=== PATIENT | female | born 1995 | race Caucasian/White ===

== ENCOUNTER → 2019-06-12 09:15 | Outpatient (BNVA) | payer OTHER, SELFPAY | PROVIDERS: Family Provider Family Medicine; PCP Family Medicine; Visit Provider Obstetrics & Gynecology | DX: N93.8 Other specified abnormal uterine and vaginal bleeding (principal); N91.2 Amenorrhea, unspecified | CPT/HCPCS: 83001; 84146; 84402; 84443; 84450 ==

== ENCOUNTER → 2019-08-25 10:44 | Outpatient (BNVA) | payer OTHER, SELFPAY | PROVIDERS: Family Provider Family Medicine; PCP Family Medicine; Visit Provider Obstetrics & Gynecology | DX: N97.9 Female infertility, unspecified (principal) | CPT/HCPCS: 84144 ==

== ENCOUNTER → 2019-10-02 15:20 | Outpatient (BNVA) | payer OTHER, SELFPAY | PROVIDERS: Family Provider Family Medicine; PCP Family Medicine; Visit Provider Obstetrics & Gynecology | DX: N91.2 Amenorrhea, unspecified (principal); N97.9 Female infertility, unspecified | CPT/HCPCS: 84144 ==

== ENCOUNTER → 2019-11-03 15:08 | Outpatient (BNVA) | payer OTHER, SELFPAY | PROVIDERS: Family Provider Family Medicine; PCP Family Medicine; Visit Provider Obstetrics & Gynecology | DX: N97.0 Female infertility associated with anovulation (principal) | CPT/HCPCS: 84144 ==

== ENCOUNTER → 2019-11-20 15:35 | Outpatient (BNVA) | payer OTHER, SELFPAY | PROVIDERS: Family Provider Family Medicine; PCP Family Medicine; Visit Provider Obstetrics & Gynecology | DX: Z32.01 Encounter for pregnancy test, result positive (principal) | CPT/HCPCS: 81025 ==

== ENCOUNTER 2019-11-28 09:11 | Emergency (ER) | payer OTHER, SELFPAY ==
--- NOTE | 2019-11-28 09:13 | US_ITS ---
WS: [id number] ULTRASOUND EARLY TECHNIQUE: Transabdominal sonography of the pelvis was performed. Followed by transvaginal sonography to better evaluate the uterus and ovaries. CLINICAL INFORMATION: preg/bleeding LMP: 10/09/2019 Beta hCG: Unknown. COMPARISON: None. FINDINGS: Cervix 3.6 cm UTERUS AND GESTATIONAL SAC Intrauterine gestations: Estimated gestational age: 6w1d Estimated delivery July 22, 2020 Yolk sac: 0.3 cm. [place] rump length (CRL): 0.5 cm. heart motion: 109 BPM. Subchorionic hemorrhage: None. OVARIES Right ovary: Right ovarian cyst measuring 3.5 x 3.1 x 3.5 cm Left ovary: Left ovary not well seen transvaginally due to positioning and patient discomfort. No adnexal masses. FREE FLUID None. US/US OB lmt with transvaginal IMPRESSION: 1. Single live intrauterine . pole and yolk sac visualized. 2. Estimated gestational age; 6w1d 3. Small amount of free fluid in the cul-de-sac. 4. Right ovarian cyst measuring 3.5 x 3.1 x 3.5 cm 5. Left ovary not well-visualized but appears normal where seen.
[2019-11-28 09:17] VITALS: BP 160/95; PULSE 85; RESP 18; TEMP 36.5; O2SAT 95
--- NOTE | 2019-11-28 09:32 | W.ED.PREGNAN ---
HPI - General: Chief complaint: Vaginal Bleeding Stated complaint: spotting/7 weeks Time Seen by Provider: 11/28/19 09:12 History of Present Illness: HPI Narrative: 24-year-old female patient presents to the emergency department with onset of, pink-tinged bleeding that started last night around 9 PM. She is approximately 7 weeks with last menstrual cycle 10/09/2019. She denies wearing a pad/tampon. Reports small amount of pink-tinged discharge this morning. She denies pelvic cramping. Reports abdominal cramping which is chronic, has not changed, reports consistent with early bowel?constipation symptoms. 1, para 0 AB 0 Complaint: vaginal bleeding Pain Consistency: intermittent Location: abdomen Severity: mild Severity scale (1-10): 2 Quality: Cramping (reports IBS-C symptoms) Relieving factors: none Exacerbating factors: none Vaginal discharge: other (pink on toilet paper) Vaginal bleeding: light Date of Last Menstrual Period: 10/09/19 Patient : Yes Number of Weeks : 7 Associated symptoms: Deny abdominal pain, dysuria, headache(s), nausea or vomiting Review of Systems General: Reports: 10 or more systems reviewed and unremarkable except in HPI and below Const: Denies: fever(s), chills or diaphoresis Eyes: Denies: blurry vision or eye redness ENMT: Denies: throat pain, dental pain or disequilibrium Card: Denies: chest pain, palpitations or irregular heart rhythm Resp: Denies: dyspnea, productive cough, non-productive cough or wheezing GI: Denies: abdominal pain, nausea or vomiting : Reports: vaginal bleeding; Denies: difficulty voiding, dysuria, urinary urgency, genital pruritis, vaginal odor or pelvic pain Musc: Denies: neck pain or back pain Skin/Breast: Denies: rash or pruritus Neuro: Denies: headache(s), weakness in extremities or behavioral changes William/Lymph: Denies: easy bruising PFSH ED PFSH: Medical History (Updated 11/28/19 @ 12:05 by TASNEEM Roe) Dysmenorrhea Surgical History History of wisdom tooth extraction Performed in [place], [place] Family History Grandfather Diabetes maternal Stroke paternal Grandmother Hypertension maternal Social History Smoking and tobacco status: never smoked Alcohol intake: former Year of sobriety/quit date alcohol: 2019 Female Reproductive History: Date of last menstrual period: 10/09/19 Physical Exam Const: COMMON NORMALS: no acute distress, patient oriented x3, healthy appearing and alert GENERAL APPEARANCE: cooperative, comfortable and well hydrated HENMT: COMMON NORMALS: normocephalic, Normal external nose present and moist oral mucous membranes HEAD & SCALP: normocephalic NOSE: Normal external nose present Eye: COMMON NORMALS: Equal, round and reactive pupils present and EOMs intact bilaterally GENERAL EYE: appearance normal, both eyes and all related structures PUPIL: Yes Equal, round and reactive pupils present Neck/C-Spine: COMMON NORMALS: full ROM and no lymphadenopathy GENERAL: Yes normal visual inspection and Yes trachea midline CERVICAL SPINE: Yes cervical ROM normal Lymph: LYMPHATIC: no lymphadenopathy noted Chest: COMMONS NORMALS: normal inspection of the chest Resp: COMMON NORMALS: normal respiratory effort and clear to auscultation bilaterally AUSCULTATION: clear to auscultation bilaterally Cardio: COMMON NORMALS: regular rhythm, S1 normal heart sound present and S2 normal heart sound present RHYTHM: regular rhythm HEART SOUNDS: S1 normal heart sound present and S2 normal heart sound present GI: COMMON NORMALS: Soft to palpation and non-tender INSPECTION: Yes normal to inspection AUSCULTATION: Yes Hypoactive bowel sounds present PALPATION: Yes Soft to palpation and No Tenderness to palpation present (GI) : COMMON NORMALS: Yes no CVA tenderness, Yes normal external appearance, Yes normal appearance of the vagina, Yes normal bimanual exam and Yes No adnexal tenderness BLADDER/KIDNEY EXAM: Yes no CVA tenderness EXTERNAL FEMALE EXAM: Yes normal appearance of the urethra SPECULUM EXAM - CERVIX: Yes Cervical os closed, Yes Cervical bleeding (Scant amount) and Yes Abnormal cervical discharge present clear BIMANUAL EXAM - VAGINA & UTERUS: Yes normal bimanual exam Back/Pelvis: COMMON NORMALS: no CVA tenderness and thoracic and lumbar spine normal to inspection Extremity: COMMON NORMALS: normal to inspection and capillary refill normal Neuro: COMMON NORMALS: patient oriented x3 and no focal motor deficits SENSORIUM/ORIENTATION: Yes alert Psych: COMMON NORMALS: mental status grossly normal, Normal thought process present and cooperative ACTIVITY/MOTOR BEHAVIOR: Yes appropriate eye contact THOUGHT PROCESS: Normal thought process present Skin: COMMON NORMALS: no rashes or lesions noted and turgor normal GENERAL SKIN EXAM: no rashes or lesions noted and turgor normal Procedures Perimortem Number of Weeks : 7 Course ED course: 24-year-old female patient presents to the emergency department with vaginal bleeding, last menstrual period 10/09/2019, 6 weeks 1 day intrauterine with cardiac activity transvaginal ultrasound. Pelvic exam with scant amount of bleeding from the cervix. Clear vaginal discharge, asymptomatic bacterial vaginosis noted on wet prep, elected not to treat at this time as she is asymptomatic, case was discussed with Dr. Sheridan. Patient has follow-up appointment in [address] Ramon. She reports stopped all medication with positive test and is only taking vitamin at this time. She was advised to return to the emergency department if she develops increased vaginal bleeding, fever, pelvic pain with vaginal bleeding or vomiting. Verbalized understanding. Questions were answered. Results of serology testing and ultrasound discussed with the patient and spouse. Consultations: Consultation #1: Dr Sheridan, discussed with Dr. Sheridan, clinical and serology findings with OB ultrasound report, single intrauterine noted with heart rate 109-112. Beta hCG within normal limits of gestational age. Wet prep discussed, asymptomatic bacterial vaginosis, will elect not to treat at this time as she is not symptomatic. Time: 12:00 Vital Signs: Vital signs: Vital Signs Temperature 97.7 F 11/28/19 09:17 Pulse Rate 79 11/28/19 12:00 Respiratory Rate 16 11/28/19 12:22 Blood Pressure 112/70 11/28/19 12:22 Pulse Oximetry 99 11/28/19 12:22 MDM - OB/Uterine Contractions Lab Data: Labs: Lab Results 11/28/19 11/28/19 11/28/19 Range/Units 09:50 10:18 10:18 WBC 5.6 (4.0-10.0) 10^3/ uL RBC 4.81 (4.1-5.3) 10^6/u L Hgb 15.2 (11.5-15.3) g/dL Hct 45.6 (37.0-47.0) % MCV 94.8 (81-99) fL MCH 31.6 (28.0-34.0) pg MCHC 33.3 (30.0-36.0) g/dL RDW 12.6 (12.1-15.1) % Plt Count 323 (130-400) 10^3/c mm MPV 8.4 (7.4-10.4) fL Neut % (Auto) 59.3 % Lymph % (Auto) 32.0 % [place] % (Auto) 7.4 % Eos % (Auto) 0.9 % Baso % (Auto) 0.2 % Neut # (Auto) 3.30 (1.8-7.7) 10^3/u L Lymph # (Auto) 1.8 (0.8-4.8) 10^3/u L [place] # (Auto) 0.4 (0.2-0.9) 10^3/u L Eos # (Auto) 0.1 (0.0-0.8) 10^3/u L Baso # (Auto) 0.0 (0.0-0.1) 10^3/u L Nucleated RBC % (a uto) 0 % Nucleated RBCs # 0.0 /100WBC Sodium (136-145) mmol/L Potassium (3.5-5.1) mmol/L Chloride (98-107) mmol/L Carbon Dioxide (22-29) mmol/L Anion Gap (5-19) BUN (6-20) mg/dL Creatinine (0.5-0.9) mg/dL GFR Calculation (90-130) mL/min Glucose (65-115) mg/dL Calculated Osmolal ity (285-295) mOsm/k g Calcium (8.5-10.5) mg/dL Total Bilirubin (0.15-1.2) mg/dL AST (0-32) U/L ALT (0-33) U/L Alkaline Phosphata se (35-105) IU/L Total Protein (6.6-8.7) g/dL Albumin (3.5-5.2) g/dL Globulin (1.3-4.6) g/dL Ser , Scott i-Qnt mIU/mL Urine Color Yellow (Yellow) Urine Appearance Clear (CLEAR) Urine pH 5 (5-7) Ur Specific Gravit y 1.015 (1.005-1.030) Urine Protein Neg (Negative) Urine Glucose (UA) Norm (Normal) Urine Ketones Negative (Negative) Urine Blood Neg (Negative) Urine Nitrate Negative (Negative) Urine Bilirubin Neg (Negative) Urine Urobilinogen Norm (Negative) mg/dL Ur Leukocyte [place] ase Negative (Negative) Blood Type A Positive Rho(D) Type Positive 11/28/19 11/28/19 Range/Units 10:18 10:18 WBC (4.0-10.0) 10^3/ uL RBC (4.1-5.3) 10^6/u L Hgb (11.5-15.3) g/dL Hct (37.0-47.0) % MCV (81-99) fL MCH (28.0-34.0) pg MCHC (30.0-36.0) g/dL RDW (12.1-15.1) % Plt Count (130-400) 10^3/c mm MPV (7.4-10.4) fL Neut % (Auto) % Lymph % (Auto) % [place] % (Auto) % Eos % (Auto) % Baso % (Auto) % Neut # (Auto) (1.8-7.7) 10^3/u L Lymph # (Auto) (0.8-4.8) 10^3/u L [place] # (Auto) (0.2-0.9) 10^3/u L Eos # (Auto) (0.0-0.8) 10^3/u L Baso # (Auto) (0.0-0.1) 10^3/u L Nucleated RBC % (a uto) % Nucleated RBCs # /100WBC Sodium 137 (136-145) mmol/L Potassium 4.0 (3.5-5.1) mmol/L Chloride 105 (98-107) mmol/L Carbon Dioxide 22 (22-29) mmol/L Anion Gap 14.0 (5-19) BUN 10 (6-20) mg/dL Creatinine 0.6 (0.5-0.9) mg/dL GFR Calculation 122.8 (90-130) mL/min Glucose 89 (65-115) mg/dL Calculated Osmolal ity 283 L (285-295) mOsm/k g Calcium 9.0 (8.5-10.5) mg/dL Total Bilirubin 0.4 (0.15-1.2) mg/dL AST 14 (0-32) U/L ALT 9 (0-33) U/L Alkaline Phosphata se 78 (35-105) IU/L Total Protein 6.9 (6.6-8.7) g/dL Albumin 3.8 (3.5-5.2) g/dL Globulin 3.1 (1.3-4.6) g/dL Ser , Scott i-Qnt 9290.00 mIU/mL Urine Color (Yellow) Urine Appearance (CLEAR) Urine pH (5-7) Ur Specific Gravit y (1.005-1.030) Urine Protein (Negative) Urine Glucose (UA) (Normal) Urine Ketones (Negative) Urine Blood (Negative) Urine Nitrate (Negative) Urine Bilirubin (Negative) Urine Urobilinogen (Negative) mg/dL Ur Leukocyte [place] ase (Negative) Blood Type Rho(D) Type Imaging Data^: US OB: Radiologist's impression: [place] [address] Ultrasound Report Signed Patient: Racheal Morton Unit #: [id number] : 1995 Age/Sex: 24 / F ADM Date: 11/28/19 Loc: ER Room/Bed: Attending Dr: Ordering Provider/Ordering MD: Mima Alvarez Date of Service: 11/28/19 Procedure(s): US OB lmt with transvaginal Accession Number(s): [id number] Report Number: [id number] WS: [id number] ULTRASOUND EARLY TECHNIQUE: Transabdominal sonography of the pelvis was performed. Followed by transvaginal sonography to better evaluate the uterus and ovaries. CLINICAL INFORMATION: preg/bleeding LMP: 10/09/2019 Beta hCG: Unknown. COMPARISON: None. FINDINGS: Cervix 3.6 cm UTERUS AND GESTATIONAL SAC Intrauterine gestations: Estimated gestational age: 6w1d Estimated delivery July 22, 2020 Yolk sac: 0.3 cm. [place] rump length (CRL): 0.5 cm. heart motion: 109 BPM. Subchorionic hemorrhage: None. OVARIES Right ovary: Right ovarian cyst measuring 3.5 x 3.1 x 3.5 cm Left ovary: Left ovary not well seen transvaginally due to positioning and patient discomfort. No adnexal masses. FREE FLUID None. US/US OB lmt with transvaginal IMPRESSION: 1. Single live intrauterine . pole and yolk sac visualized. 2. Estimated gestational age; 6w1d 3. Small amount of free fluid in the cul-de-sac. 4. Right ovarian cyst measuring 3.5 x 3.1 x 3.5 cm 5. Left ovary not well-visualized but appears normal where seen. Dictated By: Franko Smith MD Signed By: Franko Smith MD Discharge Plan Discharge Patient Disposition: Home Clinical Impression: Vaginal bleeding during , Threatened Condition: Stable Prescriptions: Continued prenat.vits,denilson,edk-tdar-wtgor Tablet 1 tab PO DAILY RF: 0 Discontinued medroxyprogesterone [Provera] 10 mg tablet 10 mg PO DAILY Qty: 10 RF: 0 metformin 500 mg tablet extended release 24 hr 1,500 mg PO DAILY Qty: 90 RF: 12 dexamethasone 2 mg tablet 2 mg PO DAILY 10 Days Qty: 10 RF: 0 clomiphene citrate 50 mg tablet 50 mg PO DAILY 5 Days Qty: 5 RF: 0 Xulane 150-35 mcg/24 hr patch weekly 1 patch TRANSDERMA .3 weeks Qty: 3 RF: 12 Discharge Orders: Discharge Order (Routine); Ordered 11/28/19 Ordered By: Mima Alvarez Referrals: Elmer Sauer MD [Primary Care Provider] - Discharge Diet: Usual diet Discharge Activity: Limit activity as instructed Patient Instructions: Threatened Miscarriage (ED) Activity Restrictions/Additional Instructions: Continue follow-up with Dr. Ramon next week, next Wednesday as scheduled Return to the emergency department if you develop heavy vaginal bleeding, saturating a pad, pelvic pain, fever or vomiting with pelvic pain Avoid sexual intercourse until follow-up next week No heavy lifting greater than 10 pounds until follow-up next week Stand Alone Forms: Work/School Release Discharge Date/Time: 11/28/19 12:24 Print Language: Israeli Coding Level of Care Code ED Change Management Coordinator for Chg Fwd Exam Comprehensive
[2019-11-28 10:00] LABS: Add Urine Microscopic? NO
[2019-11-28 10:16] LABS: Bilirubin Urine Neg (Negative); Blood Urine Neg (Negative); Glucose Urine UA Norm (Normal); Ketones Urine Negative (Negative); Leukocyte Esterase Urine Negative (Negative); Nitrate Urine Negative (Negative); Protein Urine Neg (Negative); Specific Gravity, Urine 1.015 (1.005-1.030); Urine Appearance Clear (CLEAR); Urine Color Yellow (Yellow); Urobilinogen Urine Norm (Negative); pH Urine 5 (5-7)
[2019-11-28 10:30] LABS: Basophils % 0.2 %; Eosinophils # 0.1 10^3/uL (0.0-0.8); Eosinophils % 0.9 %; Hematocrit 45.6 % (37.0-47.0); Hemoglobin 15.2 g/dL (11.5-15.3); Lymphocytes # 1.8 10^3/uL (0.8-4.8); Mean Corpuscular HGB Conc 33.3 g/dL (30.0-36.0); Mean Corpuscular Hemoglobin 31.6 pg (28.0-34.0); Mean Corpuscular Volume 94.8 fL (81-99); Mean Platelet Volume 8.4 fL (7.4-10.4); Monocytes # 0.4 10^3/uL (0.2-0.9); Monocytes % 7.4 %; Neutrophils % 59.3 %; Nucleated Red Blood Cells % 0 %; Platelet Count 323 10^3/cmm (130-400); Red Blood Count 4.81 10^6/uL (4.1-5.3); Red Cell Distribution Width 12.6 % (12.1-15.1); White Blood Count 5.6 10^3/uL (4.0-10.0)
[2019-11-28 10:34] VITALS: BP 108/68; PULSE 68; RESP 18; O2SAT 98
[2019-11-28 11:00] LABS: Alanine Aminotransferase 9 U/L (0-33); Albumin Level 3.8 g/dL (3.5-5.2); Alkaline Phosphatase 78 IU/L (35-105); Aspartate Amino Transferase 14 U/L (0-32); Blood Urea Nitrogen 10 mg/dL (6-20); Carbon Dioxide 22 mmol/L (22-29); Chloride 105 mmol/L (98-107); Creatinine Clr Calc Pharmacy 147.3787; Globulin 3.1 g/dL (1.3-4.6); Glomerular Filtration Rate 122.8 mL/min (90-130); Glucose 89 mg/dL (65-115); Osmolality Calculated 283 mOsm/kg (285-295); Sodium 137 mmol/L (136-145); Total Bilirubin 0.4 mg/dL (0.15-1.2); Total Protein 6.9 g/dL (6.6-8.7)
[2019-11-28 12:00] VITALS: BP 112/70; PULSE 79; O2SAT 97
[2019-11-28 12:22] VITALS: BP 112/70; RESP 16; O2SAT 99
== END 2019-11-28 12:24 | disposition home or self-care (01) ==
PROVIDERS: Emergency Provider Nurse Practitioner Family; PCP Family Medicine
DX: O20.0 Threatened abortion (principal); Z3A.01 Less than 8 weeks gestation of pregnancy
CPT/HCPCS: 12345; 76815; 76817; 80053; 81003; 84702; 85025; 86900; 87070; 87205; 87210; 99283

== ENCOUNTER → 2019-12-20 10:32 | Outpatient (BNVA) | payer OTHER, SELFPAY | PROVIDERS: PCP Family Medicine; Visit Provider Obstetrics & Gynecology | DX: O09.91 Supervision of high risk pregnancy, unspecified, first trimester (principal) | CPT/HCPCS: 80053; 80307; 84315; 85027; 86592; 86762; 86803; 86850; 86900; 87077; 87086; 87184; 87340; 87806 ==

== ENCOUNTER → 2020-01-12 09:42 | Outpatient (BNVA) | payer OTHER, SELFPAY | PROVIDERS: PCP Family Medicine; Visit Provider Obstetrics & Gynecology | DX: O99.891 Other specified diseases and conditions complicating pregnancy (principal); R82.71 Bacteriuria; Z3A.12 12 weeks gestation of pregnancy; B96.20 Unspecified Escherichia coli [E. coli] as the cause of diseases classified elsewhere; N39.0 Urinary tract infection, site not specified | CPT/HCPCS: 84315; 87086; 87491; 87591; 88175 ==

== ENCOUNTER → 2020-03-08 14:48 | Outpatient (BNVA) | payer OTHER, SELFPAY | PROVIDERS: PCP Family Medicine; Visit Provider Obstetrics & Gynecology | DX: Z36.89 Encounter for other specified antenatal screening (principal) | CPT/HCPCS: 76805 ==

== ENCOUNTER → 2020-05-03 15:36 | Outpatient (BNVA) | payer OTHER, SELFPAY | PROVIDERS: PCP Family Medicine; Visit Provider Obstetrics & Gynecology | DX: Z34.02 Encounter for supervision of normal first pregnancy, second trimester (principal) | CPT/HCPCS: 82950; 84315; 85025 ==

== ENCOUNTER → 2020-05-17 15:07 | Outpatient (BNVA) | payer OTHER, SELFPAY | PROVIDERS: PCP Family Medicine; Visit Provider Obstetrics & Gynecology | DX: Z34.03 Encounter for supervision of normal first pregnancy, third trimester (principal) | CPT/HCPCS: 81000 ==

== ENCOUNTER → 2020-05-31 10:44 | Outpatient (BNVA) | payer OTHER, SELFPAY | PROVIDERS: PCP Family Medicine; Visit Provider Obstetrics & Gynecology | DX: Z34.90 Encounter for supervision of normal pregnancy, unspecified, unspecified trimester (principal) | CPT/HCPCS: 81000 ==

== ENCOUNTER 2020-06-15 11:40 | Outpatient (CLI) | payer OTHER, SELFPAY ==
[2020-06-15 11:59] VITALS: TEMP 36.4
[2020-06-15 12:00] VITALS: BP 118/70; PULSE 90
[2020-06-15 12:05] VITALS: BMI 30.6
[2020-06-15 12:26] LABS: Urine Appearance Clear (CLEAR); Urine Color Colorless (Yellow)
[2020-06-15 12:27] LABS: Bilirubin Urine Neg (Negative); Blood Urine Neg (Negative); Glucose Urine UA Norm (Normal); Ketones Urine Negative (Negative); Leukocyte Esterase Urine Negative (Negative); Nitrate Urine Negative (Negative); Protein Urine Neg (Negative); Sulfosalicylic Acid Urine Negative (Negative); Urobilinogen Urine Norm (Negative); WBC Urine RARE /hpf (0-5); pH Urine 8 (5-7)
[2020-06-15 12:28] LABS: Add Urine Culture? No; Bacteria Urine TRACE /hpf; Mucus Urine TRACE /hpf; Squamous Epithelial Cell Urine 0-4 /hpf (0-5)
[2020-06-15] MEDS: betamethasone susp 6 mg/mL 5 mL 12 MG IM (13:53)
== END 2020-06-15 14:00 | disposition home or self-care (01) ==
LOC: OPOB 11:43 → OBGYN 11:47
PROVIDERS: Obstetrics & Gynecology; PCP Family Medicine; Visit Provider Obstetrics & Gynecology
DX: O26.899 Other specified pregnancy related conditions, unspecified trimester (principal); Z3A.00 Weeks of gestation of pregnancy not specified; R10.9 Unspecified abdominal pain
CPT/HCPCS: 59025; 81001; 96372; 99211; J0702

== ENCOUNTER 2020-06-16 13:36 | Outpatient (CLI) | payer OTHER, SELFPAY ==
[2020-06-16] MEDS: betamethasone susp 6 mg/mL 5 mL 12 MG IM (14:16)
== END 2020-06-16 14:19 | disposition home or self-care (01) ==
LOC: OPOB 13:46 → OBGYN 13:47
PROVIDERS: PCP Family Medicine; Visit Provider Obstetrics & Gynecology
DX: O26.899 Other specified pregnancy related conditions, unspecified trimester (principal); Z3A.00 Weeks of gestation of pregnancy not specified
CPT/HCPCS: 96372; 99211; J0702

== ENCOUNTER → 2020-06-27 16:06 | Outpatient (BNVA) | payer OTHER, SELFPAY | PROVIDERS: PCP Family Medicine; Visit Provider Obstetrics & Gynecology | DX: Z34.03 Encounter for supervision of normal first pregnancy, third trimester (principal) | CPT/HCPCS: 84315; 87081 ==

== ENCOUNTER → 2020-07-17 09:24 | Outpatient (BNVA) | payer OTHER, SELFPAY | PROVIDERS: PCP Family Medicine; Visit Provider Obstetrics & Gynecology | DX: Z34.03 Encounter for supervision of normal first pregnancy, third trimester (principal); Z20.822 Contact with and (suspected) exposure to COVID-19 | CPT/HCPCS: 87635 ==

== ENCOUNTER 2020-07-21 19:44 | Inpatient (IN) | payer OTHER, SELFPAY ==
[2020-07-21] VITALS (29 sets, daily range): BP systolic 89–127; BP diastolic 46–79; PULSE 65–100; RESP 15–16; TEMP 36.5; O2SAT 95–98; BMI 32.8
[2020-07-21 19:43] LABS: Nitrazine Paper, PH Positive
--- NOTE | 2020-07-21 21:53 | PC.NURSE ---
Lab called at this time due to labs not showing as received or pending at this time. Lab states that there was no order seen for the patient. RN stated that order was placed at 1943 and that labs were sent down and handed to a tech by [facility] at 2014. vascular technician states that she will look again for order and that she will start running the CBC that was ordered now.
[2020-07-21 21:57] LABS: Basophils % 0.4 %; Eosinophils % 0.5 %; Hematocrit 39.1 % (37.0-47.0); Lymphocytes # 2.2 10^3/uL (0.8-4.8); Lymphocytes % 25.8 %; Mean Corpuscular HGB Conc 33.2 g/dL (30.0-36.0); Mean Corpuscular Hemoglobin 30.4 pg (28.0-34.0); Mean Corpuscular Volume 91.4 fL (81-99); Monocytes # 0.6 10^3/uL (0.2-0.9); Monocytes % 7.6 %; Neutrophils # 5.46 10^3/uL (1.8-7.7); Neutrophils % 65.3 %; Nucleated Red Blood Cells % 0.2 %; Platelet Count 313 10^3/cmm (130-400); Red Blood Count 4.28 10^6/uL (4.1-5.3); Red Cell Distribution Width 14.3 % (12.1-15.1); White Blood Count 8.3 10^3/uL (4.0-10.0)
[2020-07-21] MEDS: oxytocin 30 UNIT/500 ML BAG IV (22:18)
[2020-07-21] MEDS: lactated ringers 1,000 ML 999 ML IV (22:19)
[2020-07-21] MEDS: dextrose 5%-lactated ringers 1,000 ML 125 ML IV (23:29)
--- NOTE | 2020-07-21 23:38 | P.ANESASSM_ITS ---
Pre-Anesthetic Assessment Pre-Anesthetic Assessment: Height/Weight: Height 1.6 m Weight 83.915 kg Temp Pulse Resp BP Pulse Ox 97.7 F 88 15 100/53 96 07/21/20 20:56 07/21/20 23:35 07/21/20 19:43 07/21/20 23:35 07/21/20 23:34 Preop Diagnosis: IUp Was Beta Atilio taken within 24 hours: N/A Was Clonidine taken within 24 hours: N/A Social: Social History: No alcohol and No tobacco Exam: Pre-Anes Outpt Exam: alert, oriented x 3, clear to auscultation bilaterally and regular rate & rhythm Airway: Submandibular: WNL Cervical ROM: WNL MP: 2 Dentition: Full History/ROS: No significant history except as noted Anesthetic Plan: ASA status: 2 Anesthesia: Regional (specify below) (Labor epidural) Risk of > 500 ml blood loss (7ml/kg in children): No Meds/Allergies Current Medications: Current Medications Generic Name Dose Route Start Last Admin Trade Name Freq PRN Reason Stop Dose Admin Dextrose/Lactated Ringer's 1,000 mls @ 125 m ls/hr 07/21/20 19:42 07/21/20 23:29 Dextrose 5%-Lact ated Ringers IV 125 mls/hr .Q8H PRN Administration LABOR INDUCTION Ropivacaine 200 mg in 100 mls @ 13 mls/hr 07/21/20 19:44 07/21/20 23:29 Naropin Premix EPIDURAL 13 mls/hr .Q7H42M PRN Administration ANESTHESIA Oxytocin 30 unit in 500 ml s @ 1 mls/hr 07/21/20 21:56 07/21/20 22:53 Pitocin IV 2 milliunit/min .Q24H PRN 2 mls/hr LABOR INDUCTION Titration Protocol 1 MILLIUNIT/MIN Lactated Ringer's 1,000 mls @ 999 m ls/hr 07/21/20 22:17 07/21/20 22:19 Lactated Ringers IV 999 mls/hr .Q1H1M PRN Administration See label comment s PFSH Anesthesia PFSH: Medical History Dysmenorrhea No pertinent past medical history neghx: htn,dm,thyroid,dvt/pe, herpes ----denies partner with herpes Surgical History History of wisdom tooth extraction Performed in [place], [place] Family History Grandfather Diabetes maternal Stroke paternal Grandmother Hypertension maternal Social History (Updated 07/19/20 @ 08:05 by Sandy Matamoros LPN) Smoking and tobacco status: never smoked Alcohol intake: never Female Reproductive History: Date of last menstrual period: 10/09/19 : 1 Data Anesthesia CBC & Chem 7: 07/21/20 19:55 Other Labs: Laboratory Results - last 48 hr 07/21/20 19:55 WBC 8.3 RBC 4.28 Hgb 13.0 Hct 39.1 MCV 91.4 MCH 30.4 MCHC 33.2 RDW 14.3 Plt Count 313 MPV 10.0 Neut % (Auto) 65.3 Lymph % (Auto) 25.8 [place] % (Auto) 7.6 Eos % (Auto) 0.5 Baso % (Auto) 0.4 Neut # (Auto) 5.46 Lymph # (Auto) 2.2 [place] # (Auto) 0.6 Eos # (Auto) 0.0 Baso # (Auto) 0.0 Nucleated RBC % (auto) 0.2 Nucleated RBCs # 0.0 Cardiac Studies: No Data to Display
--- NOTE | 2020-07-21 23:38 | ANES.PROC ---
Anesthesia Procedures Procedure/Date: 07/21/20 Epidural: Time Out Performed: Yes Consents Signed: Procedure Consent Consent: requested by attending/covering physician, from patient, risks and benefits reviewed and patient agrees to proceed Lumbar Level: L3-L4 Epidural position: sitting Epidural procedure: sterile prep of area, 1% lidocaine to numb the area, 18 g needle, neg for paresthesia, test dose given, 1.5% xylocaine 1:200k epi, placed PCEA, no systemic response, sterile dressing applied and 0.2% Ropiavacaine @ mls/hr (13) Additional Comments: CUCO at 5cm, cath at 10cm.
[2020-07-22] VITALS (92 sets, daily range): BP systolic 89–147; BP diastolic 50–84; PULSE 59–108; RESP 17–18; TEMP 36.4–37.5; O2SAT 90–100
[2020-07-22] MEDS: ondansetron 2 mg/ML SDV 2 mL 4 MG IVP ×2 (01:40→07:07)
[2020-07-22] MEDS: dextrose 5%-lactated ringers 1,000 ML 125 ML IV (06:18)
[2020-07-22] MEDS: lidocaine 2% INJ 20 mL INJECTION (08:53)
[2020-07-22] MEDS: fentaNYL 50 mcg/mL INJ 2mL IVP (09:02)
--- NOTE | 2020-07-22 09:51 | P.PCNOB_ITS ---
Delivery Note: Date of delivery: July 22, 2020 - PRE-DELIVERY DIAGNOSIS: 25-year-old 1 para 0 at 40 weeks and 0 days gestation GBS negative Spontaneous rupture of membranes-early labor Bilobed placenta POST-DELIVERY DIAGNOSIS: Vaginal delivery on 07/22/2020 PROCEDURE: Vaginal delivery on 07/22/2020 ANESTHESIA: Epidural anesthesia--local anesthesia with 2% lidocaine DELIVERING PHYSICIAN: Cristina Lan FACOG PRE-DELIVERY COURSE: Ms. Morton is 25-year-old 1 para 0 at 39 weeks and 6 days who prese nted to labor and delivery on 07/21/2020 with reports of spontaneous rupture of membranes at 6:30 PM with clear fluid. She was having occasional contractions- nothing consistent or that was causing her discomfort. On initial examination she was noted to be 3 cm, 75% -3 station, cephalic with the head well applied to the cervix. tracing was category 1 and she was having irregular contractions every 2 to 5 minutes. She was admitted to labor and delivery and observed for 2 to 3 hours and during this time made no further cervical change and contractions spaced out every 5 to 6 minutes. Labor was augmented with Pitocin titrated to a maximum of 10 mIU and with this she started to have regular contractions and was uncomfortable and epidural was placed. She made minimal cervical change until about 3 AM when she started to make more cervical change and was 5 cm 80% and -2 station. Around this time she started to make more rapid cervical change and and was 9 cm x 6 a.m. During this time of rapid cervical change she had stretches of minimal variability and variable decelerations with contractions which resolved with turning of Pitocin oxygen and position changes. Tracing return to category 1. She was noted to be fully dilated at 6:30 PM and was allowed to labor down as tracing was overall category 1 at this time. She was set up in lithotomy position at 7:45 PM ready to push. DELIVERY NOTE: She was set up in lithotomy position and was pushing effectively. She was noted to be +3 station and continued pushing well. She had already had some perineal tearing and decision was made to cut her right medial lateral episiotomy and verbal consent was obtained with patient and area was infiltrated with 2% lidocaine and the right mediolateral episiotomy was cut without any difficulty. The head delivered in JAMIL position, nuchal cord x1 was present-loose which was reduced without any difficulty. The shoulders and rest of the body followed with her next push. The baby's mouth and nose were suctioned and the baby was handed to the waiting extrusion die corrector. The placenta delivered spontaneously. Only 1 lobe of the placenta delivered with the cord. Manual removal of the second lobe of the placenta was done without any difficulty and no areas of retained placenta noted. The placenta was inspected well and was intact with membranes and was discarded. The fundus was noted to be firm and well contracted. The vagina and cervix were inspected and no cervical or sulcal lacerations were noted. The perineum was intact except for a second-degree right mediolateral episiotomy which was repaired with 3-0 Vicryl in a continuous interlocking fashion good hemostasis and reapproximation was obtained. Rectal exam was done and intact sphincter and mucosa were confirmed. Baby girl born at 8:50 AM on 07/22/2020 with 8/9, weighing 6 pounds 12 ounces, 3050 g, 19-3/4 inches long. Placenta was delivered spontaneously intact with membranes along with manual removal of the second lobe of the placenta. Cotyledons were intact , eccentrically inserted umbilical cord with 3 vessels noted. Estimated blood loss 400 mL--most blood loss was from episiotomy site.. Complications-none, both baby and mother were left to recover in a stable condition. This documentation was created by [employer] pump and still operator software (known for inherent pump and still operator error). Every effort was made to assure accuracy of pump and still operator. Any obvious errors or omissions should be clarified with the author of the document. Coding Level of Care Code Acute Automotive Paint Technician for Tommy Slade
[2020-07-22] MEDS: lanolin oint 7 gm 1 APPLIC TOPICAL (11:01)
[2020-07-22] MEDS: HYDROcodone-acetaminophen 5-325 mg Tablet PO ×2 (11:59→18:27)
[2020-07-22] MEDS: benzocaine-menthol 78 gm Canister 1 SPRAY TOPICAL (12:00)
--- NOTE | 2020-07-22 14:20 | PC.NURSE ---
pt worried that baby has not breast fed since 1030AM. Baby has been skin to skin. Assisted mom to wake baby and try to latch. Baby not interested in latching at this time. Mother upset. Nipple shield discussed and provided, baby still not interested in suck. Educated mom on normal feeding patter. Mom encouraged to keep baby skin to skin and we will try again in 30-45min or if baby shows interest sooner.
[2020-07-22] MEDS: ibuprofen 800 mg tablet PO ×2 (15:07→21:17)
[2020-07-22] MEDS: docusate sodium 100 mg Capsule PO (18:27)
[2020-07-22 21:29] LABS: Hematocrit 30.2 % (37.0-47.0); Hemoglobin 10.1 g/dL (11.5-15.3); Mean Corpuscular HGB Conc 33.4 g/dL (30.0-36.0); Mean Corpuscular Hemoglobin 30.4 pg (28.0-34.0); Mean Platelet Volume 9.6 fL (7.4-10.4); Platelet Count 221 10^3/cmm (130-400); Red Blood Count 3.32 10^6/uL (4.1-5.3); Red Cell Distribution Width 14.1 % (12.1-15.1); White Blood Count 12.6 10^3/uL (4.0-10.0)
[2020-07-23 01:00] VITALS: BP 90/57; PULSE 86; RESP 16; O2SAT 97
[2020-07-23 04:00] VITALS: BP 98/60; PULSE 69; RESP 16; O2SAT 98
--- NOTE | 2020-07-23 08:36 | P.DS_ITS ---
Discharge Providers SOFTWARE TEST AND VALIDATION ENGINEER Date of Admission: 07/21/20 19:44 Date of Discharge: 07/23/20 Attending Provider at Admission: Cristina Grace MD Attending Provider at Discharge: Cristina Grace MD Primary Care Provider: PRE-DELIVERY DIAGNOSIS: 25-year-old 1 para 0 at 40 weeks and 0 days gestation GBS negative Spontaneous rupture of membranes-early labor Bilobed placenta POST-DELIVERY DIAGNOSIS: Vaginal delivery on 07/22/2020 PROCEDURE: Vaginal delivery on 07/22/2020 ANESTHESIA: Epidural anesthesia--local anesthesia with 2% lidocaine DELIVERING PHYSICIAN: Cristina Lan FACOG PRE-DELIVERY COURSE: Ms. Morton is 25-year-old 1 para 0 at 39 weeks and 6 days who presented to labor and delivery on 07/21/2020 with reports of spontaneous rupture of membranes at 6:30 PM with clear fluid. She was having occasional contractions-nothing consistent or that was causing her discomfort. On initial examination she was noted to be 3 cm, 75% -3 station, cephalic with the head well applied to the cervix. tracing was category 1 and she was having irregular contractions every 2 to 5 minutes. She was admitted to labor and delivery and observed for 2 to 3 hours and during this time made no further cervical change and contractions spaced out every 5 to 6 minutes. Labor was augmented with Pitocin titrated to a maximum of 10 mIU and with this she started to have regular contractions and was uncomfortable and epidural was placed. She made minimal cervical change until about 3 AM when she started to make more cervical change and was 5 cm 80% and -2 station. Around this time she started to make more rapid cervical change and and was 9 cm x 6 a.m. During this time of rapid cervical change she had stretches of minimal variability and variable decelerations with contractions which resolved with turning of Pitocin oxygen and position changes. Tracing return to category 1. She was noted to be fully dilated at 6:30 PM and was allowed to labor down as tracing was overall category 1 at this time. She was set up in lithotomy position at 7:45 PM ready to push. DELIVERY NOTE: She was set up in lithotomy position and was pushing effectively. She was noted to be +3 station and continued pushing well. She had already had some perineal tearing and decision was made to cut her right medial lateral episiotomy and verbal consent was obtained with patient and area was infiltrated with 2% lidocaine and the right mediolateral episiotomy was cut without any difficulty. The head delivered in JAMIL position, nuchal cord x1 was present-loose which was reduced without any difficulty. The shoulders and rest of the body followed with her next push. The baby's mouth and nose were suctioned and the baby was handed to the waiting billet sawyer. The placenta delivered spontaneously. Only 1 lobe of the placenta delivered with the cord. Manual removal of the second lobe of the placenta was done without any difficulty and no areas of retained placenta noted. The placenta was inspected well and was intact with membranes and was discarded. The fundus was noted to be firm and well contracted. The vagina and cervix were inspected and no cervical or sulcal lacerations were noted. The perineum was intact except for a second-degree right mediolateral episiotomy which was repaired with 3-0 Vicryl in a continuous interlocking fashion good hemostasis and reapproximation was obtained. Rectal exam was done and intact sphincter and mucosa were confirmed. Baby girl born at 8:50 AM on 07/22/2020 with 8/9, weighing 6 pounds 12 ounces, 3050 g, 19-3/4 inches long. Placenta was delivered spontaneously intact with membranes along with manual removal of the second lobe of the placenta. Cotyledons were intact , eccentrically inserted umbilical cord with 3 vessels noted. Estimated blood loss 400 mL--most blood loss was from episiotomy site.. Complications-none, both baby and mother were left to recover in a stable condition. HOSPITAL COURSE: She underwent an uncomplicated vaginal delivery on 07/22/2020. She did well on day 0 and was ambulating well, tolerating regular diet, voiding freely, passing flatus. She was breast-feeding without difficulty and bonding well with her daughter. Pain was well-controlled with by mouth pain medication. She denied nausea, vomiting, fever, chills, shortness of breath, leg pain. She had moderate vaginal bleeding. On day # 1 she continued to do well with stable vital signs and stable hemoglobin at 10.1. She was discharged home on day 1 34 hours after delivery in a stable condition, as she desired early discharge. Warning signs for endometritis, mastitis, DVT/PE were reviewed with her. Post delivery activity restrictions were also reviewed with her at all her questions were answered to her satisfaction. Plans on using control pills for contraception which will be started at her 6-week visit EXAM AT DISCHARGE: Gen.: No acute distress Heart: S1-S2 heard, regular rate and rhythm Lungs: Clear to auscultation bilaterally Abdomen: Soft, fundus firm below umbilicus, Legs: No calf tenderness, trace bilateral pitting pedal edema. CONDITION AT DISCHARGE: Stable This documentation was created by [employer] planer off bearer software (known for inherent planer off bearer error). Every effort was made to assure accuracy of planer off bearer. Any obvious errors or omissions should be clarified with the author of the document. Reason for Visit Reason for Visit: POSSIBLE SROM Information Peripartum Data: Delivery Method: Vaginal Physical Exam Urinary Catheter Management^: Christian Latex: Cath Placed During This Visit: yes, but has since been removed by the nurse Reason for Continuing Indwelling Catheter: Decision to DC Catheter Urinary Catheter Date of Insertion: 07/22/20 Urinary Catheter Time of Insertion: 00:53 Date Urinary Catheter Removed: 07/22/20 Time Urinary Catheter Discontinued: 07:44 Discharge Data Data Completed and Pending: Labs from last 24 hours 07/22/20 21:15 WBC 12.6 H RBC 3.32 L Hgb 10.1 L Hct 30.2 L MCV 91.0 MCH 30.4 MCHC 33.4 RDW 14.1 Plt Count 221 MPV 9.6 Vitals: Last Vital Signs Temp 97.5 F L 07/22/20 13:06 Pulse 69 07/23/20 04:00 Resp 16 07/23/20 04:00 BP 98/60 07/23/20 04:00 Pulse Ox 98 07/23/20 04:00 Discharge Plan Discharge Patient Disposition: Home Condition: Stable Prescriptions: New docusate sodium 100 mg Capsule 100 mg PO BID PRN (Reason: constipation) Qty: 30 RF: 0 ibuprofen 800 mg tablet 800 mg PO Q8H Qty: 30 RF: 0 Continued omega-3 fatty acids 500 mg capsule 500 mg PO DAILY RF: 0 acetaminophen [Tylenol] 325 mg capsule 325 mg PO QID PRN (Reason: pain) RF: 0 prenat.vits,denilson,kmu-eqhp-kzzbb Tablet 1 tab PO DAILY RF: 0 Discharge Orders: Discharge Order (Routine); Ordered 07/23/20 Ordered By: Cristina Grace Referrals: Lili Verdin MD [Physician] - (6-week ) Discharge Diet: Usual diet Patient Instructions: Opioid Safety Activity Restrictions/Additional Instructions: Pelvic rest for 6 weeks, no heavy lifting for 6 weeks 6-week visit with Dr. Verdin Discharge Attestations SOFTWARE TEST AND VALIDATION ENGINEER Time Spent in Discharge Care*: greater than 30 min Coding Level of Care Code Acute Blanket Maker for [facility]
[2020-07-23] MEDS: ibuprofen 800 mg tablet PO (08:38)
[2020-07-23] MEDS: prenatal vitamin Capsule 1 CAP PO (08:39)
[2020-07-23] MEDS: docusate sodium 100 mg Capsule PO (08:39)
[2020-07-23 11:02] VITALS: BP 95/59; PULSE 67; RESP 14; TEMP 36.8
[2020-07-23 14:56] VITALS: BP 105/54; PULSE 76; RESP 15; TEMP 36.9
== END 2020-07-23 15:33 | disposition home or self-care (01) | DRG 807 ==
LOC: OBGYN 19:47
PROVIDERS: Admitting Provider Obstetrics & Gynecology; PCP Family Medicine; Visit Provider Obstetrics & Gynecology
DX: O43.193 Other malformation of placenta, third trimester (principal); Z37.0 Single live birth; O76 Abnormality in fetal heart rate and rhythm complicating labor and delivery; O69.2XX0 Labor and delivery complicated by other cord entanglement, with compression, not applicable or unspecified; O70.1 Second degree perineal laceration during delivery; Z3A.40 40 weeks gestation of pregnancy
CPT/HCPCS: 36415; 51702; 59025; 59409; 83986; 85025; 85027; 96374; 96375; 98960; 99211; J2405; J2795; J3010

== ENCOUNTER 2022-02-27 07:11 | Outpatient (CLI) | payer BC, SELFPAY ==
--- NOTE | 2022-02-27 07:30 | US_ITS ---
WS: [id number] LIMITED OBSTETRICAL ULTRASOUND HISTORY: 12 WEEKS GESTATION COMPARISON: None available. Presentation: Breech Cervix: Closed and normal length. Cervical length 4.0 cm. Placenta: Anterior, no previa or abruption. Grade: 0 HEART: FHR of 141 BPM. measurements: BPD = 2.9 cm = 15w2d HC = 11.3 cm = 15w3d AC = 9.4 cm = 15w4d FL = 1.6 cm = 14w5d AGA by ultrasound: 15w2d CHARBEL by ultrasound: 08/19/2022 US/US OB <= 14 weeks fetus [id number] IMPRESSION: 1. Single intrauterine gestation of 15 weeks 2 days with an EDC of 08/19/2022. 2. Normal cardiac activity.
== END 2022-02-27 07:12 | disposition home or self-care (01) ==
LOC: RAD 07:20
PROVIDERS: PCP Family Medicine; Visit Provider Family Medicine
DX: Z34.92 Encounter for supervision of normal pregnancy, unspecified, second trimester (principal); Z3A.15 15 weeks gestation of pregnancy
CPT/HCPCS: 76801

== ENCOUNTER 2022-08-23 00:10 | Inpatient (IN) | payer BC, SELFPAY ==
[2022-08-22] VITALS (7 sets, daily range): BP systolic 121–129; BP diastolic 69–87; PULSE 83–107; RESP 18; TEMP 35.9–36.2; BMI 31.2
[2022-08-22 17:58] LABS: Nitrazine Paper, PH Negative
[2022-08-22 17:59] LABS: Actim Prom Positive
[2022-08-22 19:16] LABS: Basophils % 0.3 %; Eosinophils % 0.4 %; Hematocrit 37.7 % (37.0-47.0); Hemoglobin 12.6 g/dL (11.5-15.3); Lymphocytes # 1.8 10^3/uL (0.8-4.8); Mean Corpuscular HGB Conc 33.4 g/dL (30.0-36.0); Mean Corpuscular Hemoglobin 30.2 pg (28.0-34.0); Mean Corpuscular Volume 90.4 fl (81-99); Mean Platelet Volume 9.8 fL (7.4-10.4); Monocytes # 0.5 10^3/uL (0.2-0.9); Monocytes % 7.1 %; Neutrophils # 4.98 10^3/uL (1.8-7.7); Neutrophils % 67.9 %; Nucleated Red Blood Cells % 0 %; Platelet Count 298 10^3/cmm (130-400); Red Blood Count 4.17 10^6/uL (4.1-5.3); Red Cell Distribution Width 13.4 % (12.1-15.1); White Blood Count 7.3 10^3/uL (4.0-10.0)
[2022-08-22] MEDS: dextrose 5%-lactated ringers 1,000 ML 125 ML IV (21:42)
[2022-08-22] MEDS: ondansetron 2 mg/ML SDV 2 mL 4 MG IVP (21:44)
[2022-08-22] MEDS: acetaminophen 325 mg Tablet 650 MG PO (23:30)
[2022-08-23] VITALS (57 sets, daily range): BP systolic 83–133; BP diastolic 49–75; PULSE 68–110; RESP 16–18; TEMP 36.1–37.1; O2SAT 93–99
[2022-08-23] MEDS: ondansetron 2 mg/ML SDV 2 mL 4 MG IVP (02:56)
[2022-08-23] MEDS: lactated ringers 1,000 ML 999 ML IV ×2 (03:02→08:30)
--- NOTE | 2022-08-23 03:58 | PM.OBGYHP ---
Providers/Chief Complaint Admitting Physician: Tucker Gonzalez MD Primary Care Provider: Elmer Sauer MD Chief Complaint: poss srom HPI SOFTWARE DEVELOPMENT COORDINATOR History of Present Illness Racheal Morton is a 27 year old G2, P1 female that presents for evaluation of rupture membranes. Patient was ROM plus positive. Patient states that she had been leaking fluid since 5:30 AM on August 22, 2022. Patient is having occasional contractions but nothing regular. Initial decision to place Cytotec was made but that she had made change from 2 to 4 cm. Patient has continued contraction regularly after that and has made some change. Forebag has been noted. There was a episode of bradycardia with heart rate down into the 90s but this is improved with intervention. Variability has been good but no recent acceleration. care has been unremarkable. labs were unremarkable. GBS was negative. Present Details : 2 Para: 1 care: good care Ultrasounds: normal 1st trimester US and normal mid trimester US Labs Blood type OB HPI: A (+) positive Rubella: Immune RPR: Negative GBS: Negative HBsAG: Negative Review of Systems General: Reports: 10 or more systems reviewed and unremarkable except in HPI and below Medications/Allergies Home Medications Medication Instructions Recorded Confirmed Last Taken Type prenat.vits,denilson,ttw-[id number]-pkkmo 1 tab PO DAILY 05/25/19 08/22/22 08/21/22 08:00 History norethindrone (contraceptive) 0.35 0.35 mg PO DAILY #28 tabs 09/02/20 09/02/20 Unknown Rx mg tablet ([facility]) Allergies Allergy/AdvReac Type Severity Reaction Status Date / Time No Known Allergies Allergy Verified 09/02/20 12:55 PFSH SOFTWARE DEVELOPMENT COORDINATOR PFSH: Medical History Dysmenorrhea No pertinent past medical history neghx: htn,dm,thyroid,dvt/pe, herpes ----denies partner with herpes Surgical History History of wisdom tooth extraction Performed in [place], [place] Family History Grandfather Diabetes maternal Stroke paternal Grandmother Hypertension maternal Social History (Updated 09/02/20 @ 08:20 by Sandy Matamoros LPN) Smoking and tobacco status: never smoked Alcohol intake: never Substance/Drug Use: never Other Female Reproductive History: Hx Age of Menarche: 10 History History History 2 Term 1 0 Miscarriages/Ectopic 0 Living Children 1 Vitals/I&O/Wt Last Vital Signs Temp 97.5 F L 08/23/22 02:39 Pulse 80 08/23/22 02:38 Resp 18 08/22/22 18:46 BP 125/69 08/22/22 21:33 Pulse Ox 98 08/23/22 02:38 O2 Del Method Room Air 08/22/22 18:42 Weight last 48 hrs Weight 82.554 kg Physical Exam Const: COMMON NORMALS: no acute distress and alert Resp: COMMON NORMALS: normal respiratory effort and clear to auscultation bilaterally Cardio: COMMON NORMALS: no JVD, regular rate and regular rhythm GI: OTHER: gravid Extremity: COMMON NORMALS: normal to inspection and no clubbing, cyanosis or edema Neuro: COMMON NORMALS: moves all extremities, no focal motor deficits and no sensory deficits noted Psych: COMMON NORMALS: mental status grossly normal, normal affect and speech normal Skin: COMMON NORMALS: no rashes or lesions noted Data 08/22/22 18:20 A&P Assessment and plan (1) Term : (2) Premature rupture of membranes (PROM) affecting second : Patient is currently making changes so labor has not been augmented. However, forebag was noted so it was ruptured. Continue with routine labor management at this time. However if continued bradycardia is noted and may need to consider more immediate delivery. It was discussed with the patient and consented for if needed emergently. Attestations Medical Necessity Statement*: Anticipate greater than 2 midnight stay. Coding Level of Care Code Acute Code for Chg Fwd Diagnoses Term Z34.90 Premature rupture of membranes (PROM) affecting second O42.90
[2022-08-23] MEDS: dextrose 5%-lactated ringers 1,000 ML 125 ML IV (04:07)
[2022-08-23] MEDS: acetaminophen 325 mg Tablet 650 MG PO (05:44)
[2022-08-23] MEDS: fentaNYL 50 mcg/mL INJ 2mL IVP ×2 (05:59→07:28)
--- NOTE | 2022-08-23 08:46 | P.ANESASSM_ITS ---
Pre-Anesthetic Assessment Height/Weight: Height 1.63 m Weight 82.554 kg Temp Pulse Resp BP Pulse Ox O2 Del Method 97.0 F L 93 18 107/58 98 Room Air 08/23/22 07:35 08/23/22 08:43 08/23/22 07:28 08/23/22 08:41 08/23/22 08:43 08/23/22 06:47 Epidural Familial anesthetic complications: States previous epidural gave her back pain - wishes to proceed with current epidural Social No alcohol and No tobacco Exam alert, oriented x 3, clear to auscultation bilaterally and regular rate & rhythm Airway Mallampati: Class III Dentition: chipped Anesthetic Plan ASA status: 2 Anesthesia: Regional (specify below) Risk of > 500 ml blood loss (7ml/kg in children): Yes, adequate IV access and fluids planned Medications/Allergies Home Medications Medication Instructions Recorded Confirmed Last Taken Type prenat.vits,denilson,syn-qifk-dqrnk 1 tab PO DAILY 05/25/19 08/22/22 08/21/22 08:00 History norethindrone (contraceptive) 0.35 0.35 mg PO DAILY #28 tabs 09/02/20 09/02/20 Unknown Rx mg tablet ([facility]) Allergies Allergy/AdvReac Type Severity Reaction Status Date / Time No Known Allergies Allergy Verified 09/02/20 12:55 Current Medications Generic Name Dose Route Start Last Admin Trade Name Freq PRN Reason Stop Dose Admin Acetaminophen 650 mg 08/22/22 18:28 08/23/22 05:44 Acetaminophen 325 Mg Tablet PO 650 mg Q6H PRN Administration Mild pain or temp > 100.4 Fentanyl 25 - 100 mcg 08/23/22 05:54 08/23/22 07:28 Fentanyl 50 Mcg/Ml Inj 2ml IVP 25 mcg Q1H PRN Administration SEVERE PAIN Dextrose/Lactated Ringer's 1,000 mls @ 125 mls/hr 08/22/22 18:30 08/23/22 04:07 Dextrose 5%-Lactated Ringers IV 125 mls/hr .Q8H SOHAIL Administration Lactated Ringer's 1,000 mls @ 999 mls/hr 08/22/22 18:28 08/23/22 03:02 Lactated Ringers IV 999 mls/hr .Q1H1M PRN Administration Per L&D Rescitation Protocol Ondansetron HCl 4 mg 08/22/22 18:28 08/23/22 02:56 Ondansetron 2 Mg/Ml Sdv 2 Ml IVP 4 mg Q4H PRN Administration NAUSEA AND VOMITING PFSH Anesthesia Medical History Dysmenorrhea No pertinent past medical history neghx: htn,dm,thyroid,dvt/pe, herpes ----denies partner with herpes Surgical History History of wisdom tooth extraction Performed in [place], [place] Family History Grandfather Diabetes maternal Stroke paternal Grandmother Hypertension maternal Social History (Updated 09/02/20 @ 08:20 by Sandy Matamoros LPN) Smoking and tobacco status: never smoked Alcohol intake: never Substance/Drug Use: never Female Reproductive History : 2 Data Anesthesia 08/22/22 18:20 Short CBC 08/22/22 Range/Units 18:20 WBC 7.3 (4.0-10.0) 10^3/uL Hgb 12.6 (11.5-15.3) g/dL Hct 37.7 (37.0-47.0) % MCV 90.4 (81-99) fl Plt Count 298 (130-400) 10^3/cmm Neut % (Auto) 67.9 % Neut # (Auto) 4.98 (1.8-7.7) 10^3/uL Cardiac Studies: No Data to Display
--- NOTE | 2022-08-23 08:47 | ANES.PROC ---
Anesthesia Procedures Procedure/Date: 08/23/22 Epidural: Time Out Performed: Yes Consents Signed: Procedure Consent Consent: requested by attending/covering physician, from patient, from other, risks and benefits reviewed and patient agrees to proceed Lumbar Level: L3-L4 Epidural position: sitting Epidural procedure: sterile prep of area, 1% lidocaine to numb the area, 18 g needle, negative for paresthesia passed, neg for paresthesia, test dose given, 1.5% xylocaine 1:200k epi (5), 0.2% Ropivacaine bolus ml (5), placed PCEA, no systemic response, sterile dressing applied, L.U.D. no apparent complications and 0.2% Ropiavacaine @ mls/hr (10) Additional Comments: CUCO at 5 cm, threaded to 11 cm. Pain decreased from 10 to 1
[2022-08-23] MEDS: lidocaine 2% INJ 20 mL INJECTION (10:15)
--- NOTE | 2022-08-23 10:42 | PM.DELIVERY ---
Delivery Note: Date of delivery: August 23, 2022 Pre-delivery diagnoses: Term Post-delivery diagnoses: Same, viable infant female Procedure: Spontaneous vaginal delivery Op report anesthesia: Epidural Delivering Physician: Kelton Gonzalez MD Estimated blood loss (mL): 300 Pre-Delivery Course: This is a 27-year-old G2, P2 that presented yesterday with rupture membranes. Patient initially had slow progression to 5 cm. Forebag was noted and it was ruptured. Patient then progressed to completion as expected. Patient received epidural at 8 cm. Delivery: Patient was placed in normal lithotomy position and was coached to start pushing with contractions. Patient with contractions for approximately 30 minutes. Patient then delivered a viable infant female without issues. There was nuchal cord x1 that was delivered through. Placenta was then delivered without issue. The perineum did show a small second-degree perineal tear and a left labial tear. The perineal tear was repaired with 2-0 Vicryl and the labial tear was repaired with with 3-0 chromic. Patient had significant labial swelling. Post-Delivery Status: Stable History History History 2 Term 2 0 Miscarriages/Ectopic 0 Living Children 2 A&P Assessment and plan (1) Vaginal delivery: Proceed with routine care. Coding Level of Care Code Acute Code for Chg Fwd Diagnoses Vaginal delivery O80
[2022-08-23] MEDS: benzocaine-menthol 78 gm Canister 1 SPRAY TOPICAL (13:31)
[2022-08-23] MEDS: ibuprofen 800 mg tablet PO (15:04)
[2022-08-23] MEDS: docusate sodium 100 mg Capsule PO (18:34)
--- NOTE | 2022-08-23 18:39 | PC.NURSE ---
Entered room mom was resting in bed on her right side. Baby was not in the crib. The father didnot have baby either. Baby was found completely under moms shirt with her face in moms breast. Educated mother on safe sleeping, and mother verbalized understanding.
[2022-08-24] MEDS: ibuprofen 800 mg tablet PO ×2 (00:02→09:14)
[2022-08-24 00:32] LABS: Hematocrit 27.8 % (37.0-47.0); Mean Corpuscular HGB Conc 32.4 g/dL (30.0-36.0); Mean Corpuscular Hemoglobin 29.7 pg (28.0-34.0); Mean Corpuscular Volume 91.7 fl (81-99); Mean Platelet Volume 9.8 fL (7.4-10.4); Platelet Count 213 10^3/cmm (130-400); Red Blood Count 3.03 10^6/uL (4.1-5.3); Red Cell Distribution Width 13.5 % (12.1-15.1); White Blood Count 11.4 10^3/uL (4.0-10.0)
[2022-08-24 04:35] VITALS: BP 103/61; PULSE 71; TEMP 36.8; O2SAT 98
--- NOTE | 2022-08-24 07:26 | PM.OBGYDC ---
Discharge Providers ETL INFORMATICA DEVELOPER Date of Admission: 08/23/22 00:10 Date of Discharge: 08/24/22 Attending Provider at Admission: Tucker Gonzalez MD Attending Provider at Discharge: Tucker Gonzalez MD Primary Care Provider: Elmer Sauer MD Diagnoses at Discharge Discharge Diagnosis (1) Vaginal delivery: Status: Acute Reason for Visit Reason for Visit: poss srom Brief History: This is a 27-year-old that presented with rupture of membranes at 40 weeks 4 days Hospital Course Hospital Course The patient was found to have rupture membranes after arrival. The patient initially did not progress as expected and forebag was noted. Rupture of the forebag was performed and consistent contractions and cervical change did occur. Patient delivered a viable infant female via vaginal delivery without difficulty. Patient had no significant complications during delivery. care was unremarkable. Patient is breast-feeding without issues. Patient has been ambulating and urinating without difficulty Information Peripartum Data: Delivery Method: Vaginal Laceration description: Perineal - 2nd Degree Episiotomy description: None complications: none Physical Exam Const: COMMON NORMALS: no acute distress and alert Neck/C-Spine: COMMON NORMALS: no JVD Resp: COMMON NORMALS: normal respiratory effort and clear to auscultation bilaterally AUSCULTATION: clear to auscultation bilaterally Cardio: COMMON NORMALS: no JVD, regular rate and regular rhythm RATE: regular rate RHYTHM: regular rhythm GI: COMMON NORMALS: Soft to palpation PALPATION: Yes Soft to palpation OTHER: Uterus firm and below umbilicus Extremity: COMMON NORMALS: normal to inspection and no clubbing, cyanosis or edema Neuro: COMMON NORMALS: moves all extremities, no focal motor deficits and no sensory deficits noted SENSORIUM/ORIENTATION: Yes alert Psych: COMMON NORMALS: mental status grossly normal, normal affect and speech normal SPEECH: Yes normal speech Skin: COMMON NORMALS: no rashes or lesions noted GENERAL SKIN EXAM: no rashes or lesions noted History History History 2 Term 2 0 Miscarriages/Ectopic 0 Living Children 2 Discharge Data Studies Completed and Pending Laboratory Results WBC 11.4 10^3/uL (4.0-10.0) H 08/24/22 00:18 RBC 3.03 10^6/uL (4.1-5.3) L 08/24/22 00:18 Hgb 9.0 g/dL (11.5-15.3) L 08/24/22 00:18 Hct 27.8 % (37.0-47.0) L 08/24/22 00:18 MCV 91.7 fl (81-99) 08/24/22 00:18 MCH 29.7 pg (28.0-34.0) 08/24/22 00:18 MCHC 32.4 g/dL (30.0-36.0) 08/24/22 00:18 RDW 13.5 % (12.1-15.1) 08/24/22 00:18 Plt Count 213 10^3/cmm (130-400) 08/24/22 00:18 MPV 9.8 fL (7.4-10.4) 08/24/22 00:18 Neut % (Auto) 67.9 % 08/22/22 18:20 Lymph % (Auto) 24.0 % 08/22/22 18:20 [place] % (Auto) 7.1 % 08/22/22 18:20 Eos % (Auto) 0.4 % 08/22/22 18:20 Baso % (Auto) 0.3 % 08/22/22 18:20 Neut # (Auto) 4.98 10^3/uL (1.8-7.7) 08/22/22 18:20 Lymph # (Auto) 1.8 10^3/uL (0.8-4.8) 08/22/22 18:20 [place] # (Auto) 0.5 10^3/uL (0.2-0.9) 08/22/22 18:20 Eos # (Auto) 0.0 10^3/uL (0.0-0.8) 08/22/22 18:20 Baso # (Auto) 0.0 10^3/uL (0.0-0.1) 08/22/22 18:20 Nucleated RBC % (auto) 0 % 08/22/22 18:20 Nucleated RBCs # 0.0 /100WBC 08/22/22 18:20 Insulin-like GF I Positive 08/22/22 17:40 Vitals Last Vital Signs Temp 98.2 F 08/24/22 04:35 Pulse 71 08/24/22 04:35 Resp 17 08/23/22 22:00 BP 103/61 08/24/22 04:35 Pulse Ox 98 08/24/22 04:35 O2 Del Method Room Air 08/24/22 04:35 Discharge Plan Discharge Patient Disposition: Home Condition: Stable Prescriptions: Continued prenat.vits,denilson,[id number] Tablet 1 tab PO DAILY Discontinued norethindrone (contraceptive) [Ortho [facility]] 0.35 mg tablet 0.35 mg PO DAILY Qty: 28 12RF Referrals: Tucker Gonzalez MD [Physician] - 6 Weeks Discharge Diet: Usual diet Discharge Activity: Limit activity as instructed Patient Instructions: Opioid Safety Discharge Attestations ETL INFORMATICA DEVELOPER Time Spent in Discharge Care*: less than 30 min Coding Level of Care Code Acute Code for Chg Fwd Diagnoses Vaginal delivery O80
[2022-08-24] MEDS: docusate sodium 100 mg Capsule PO (09:14)
[2022-08-24] MEDS: prenatal vitamin Capsule 1 CAP PO (09:14)
[2022-08-24 09:30] VITALS: BP 108/72; PULSE 76; RESP 15; TEMP 37.2; O2SAT 98
--- NOTE | 2022-08-24 11:41 | ANE.PACU2 ---
Inpatient post-anesthesia follow up: Airway intact: Yes Vital signs: Temperature 98.2 F Pulse Rate 71 Respiratory Rate 17 Blood Pressure 103/61 Pulse Oximetry 98 Oxygen Delivery Me thod Room Air Oxygen Flow Rate Fraction of Inspir ed Oxygen Hydration adequate: Yes Nausea and vomiting: No Pain level: 2 Mental status: Baseline
[2022-08-24 12:45] VITALS: BP 109/73; PULSE 91; RESP 15; TEMP 37.4; O2SAT 98
== END 2022-08-24 13:00 | disposition home or self-care (01) | DRG 807 ==
LOC: OPOB 00:11 → OBGYN 00:11
PROVIDERS: Admitting Provider Family Medicine; PCP Family Medicine; Visit Provider Family Medicine
DX: O48.0 Post-term pregnancy (principal); Z37.0 Single live birth; O69.81X0 Labor and delivery complicated by cord around neck, without compression, not applicable or unspecified; O70.1 Second degree perineal laceration during delivery; Z3A.40 40 weeks gestation of pregnancy; O70.0 First degree perineal laceration during delivery; O76 Abnormality in fetal heart rate and rhythm complicating labor and delivery
CPT/HCPCS: 36415; 59025; 59409; 83986; 84112; 85025; 85027; 96374; 96376; 99211; J2405; J2795; J3010; J7040; J7120; J7121

== ENCOUNTER 2024-04-26 11:59 | Emergency (ER) | payer OTHER, SELFPAY ==
[2024-04-26 12:08] VITALS: BP 134/93; PULSE 80; RESP 18; TEMP 36.4; O2SAT 99; BMI 32.5
--- NOTE | 2024-04-26 12:22 | ECG_ITS ---
[employer] [facility] [facility] Date: 2024-04-26 Pat Name: Racheal Morton Department: Room: Gender: Female Fusing Machine Feeder: : 1995 Requested By: Abbe Ervin Order Number: [id number] Beverly MD: Wes Garcia M.D. Measurements Intervals Harvey Rate: 77 P: 50 MD: 143 QRS: 62 QRSD: 82 T: 55 QT: 349 QTc: 397 Interpretive Statements SINUS RHYTHM WITH SINUS ARRHYTHMIA No previous ECG available for comparison Electronically Signed On 04-26-2024 22:03:05 CDT by Wes Garcia M.D. [id number]
--- NOTE | 2024-04-26 12:22 | XRR_ITS ---
PROCEDURE INFORMATION: Exam: XR Chest Exam date and time: 04/26/2024 12:23 PM Age: 29 years old Clinical indication: Pain; Angina pectoris; Additional info: Cp TECHNIQUE: Imaging protocol: Radiologic exam of the chest. Views: 1 view. COMPARISON: No relevant prior studies available. FINDINGS: Lungs: Clear. No consolidation. There is a 4 mm nodular density projecting over the right upper lung zone superimposed on the clavicle and right 2nd rib. This appears fairly dense and likely represents a calcified granuloma. Pleural spaces: No significant pleural effusion. No pneumothorax. Heart/Mediastinum: Within normal limits. No cardiomegaly. Bones/joints: Intact. Other findings: None. XR/XR chest 1V portable [id number] IMPRESSION: 1. No acute findings. 2. Probable 4 mm calcified granuloma in the right upper lobe.
--- NOTE | 2024-04-26 12:22 | W.ED.CHESTPA ---
HPI - Chest Pain General: Chief Complaint: Chest Pain Stated Complaint: chest tight Time Seen by Provider: 04/26/24 12:12 Source: patient and family Mode of arrival: ambulatory Limitations: no limitations History of Present Illness: This patient comes in because of she is having chest pain episodes that have occurred over the past week or thereabouts. She states that heaviness feeling occurs in the center of her chest. She states they have lasted anywhere from 30 to 60 minutes as best she can estimate. She states the pain does not radiate or move. She states is not associated with any emotional changes or other symptoms that she is aware. She has no associated nausea or diaphoresis but does get a sensation of shortness of breath. She states that does not go to what she previously experienced as a teenager as a full-blown panic attack. She states it never wakes her from sleep. She is not terribly physically active other than activities of daily living so she cannot describe whether it is worsened with active exertional activity. Certainly is not worse or brought on by her activities of daily living. She is not a tobacco user. She has not been recently ill. She had perhaps a cough equivalent diagnosis of reactive airway disease as a child but she again is noted she has not been recently ill. No history of heartburn or acid reflux. No recent trauma. No history of thromboembolic disease but she is on oral contraceptives. No family history of thromboembolic disease. No hip family history of premature cardiovascular disease or sudden . She denies any sensation of rapid heart rate when these episodes occur. Related Data Home Medications ?Medication ?Instructions ?Recorded ?Confirmed prenat.vits,denilson,[id number] 1 tab PO DAILY 05/25/19 04/26/24 buspirone 5 mg tablet 5 mg PO BID 04/26/24 04/26/24 norelgestromin 150 mcg-e.estradiol 1 patch transdermal Q7D 04/26/24 04/26/24 35 mcg/24 hr weekly transderm patch (Xulane) Allergies Allergy/AdvReac Type Severity Reaction Status Date / Time No Known Allergies Allergy Verified 09/02/20 12:55 [facility] PFSH: Medical History Dysmenorrhea No pertinent past medical history neghx: htn,dm,thyroid,dvt/pe, herpes ----denies partner with herpes Surgical History History of wisdom tooth extraction Performed in [place], [place] Family History Grandfather Diabetes maternal Stroke paternal Grandmother Hypertension maternal Social History (Updated 09/02/20 @ 08:20 by Sandy Matamoros LPN) Smoking and tobacco/nicotine status: never used tobacco/nicotine Alcohol intake: never Substance/Drug Use: never Course Reevaluation(s): Reevaluation #1: Patient remained stable. All her results were reviewed with her and her spouse their limitations and implications. No evidence at this time of an ongoing emergency medical condition including ACS, risk of PE or thromboembolic condition, other serious medical condition at this time. She did relate that she was given BuSpar last week and she had taken a couple doses when she had a couple of previous episodes but today she took the BuSpar and it did not seem to be as effective. I did discuss with her that BuSpar is not commonly a as needed medication despite what she has been told. Certainly suggest this may be anxiety related certainly does not at this time suggest an ongoing emergency medical condition. All questions were answered she is stable to be discharged we also discussed return precautions. Time: 14:50 Vital Signs: Vital signs: Vital Signs Temperature 97.6 F 04/26/24 12:08 Pulse Rate 76 04/26/24 12:41 Respiratory Rate 18 04/26/24 12:08 Blood Pressure 122/69 04/26/24 12:41 Pulse Oximetry 96 04/26/24 12:41 Oxygen Delivery Me thod Room Air 04/26/24 12:41 MDM - Chest Pain Medical Decision Making Patient presented as noted in HPI with multiple episodes of chest pressure intermittent over the past week with subjective feeling of shortness of breath. Will initiate a workup to ensure no evidence of arrhythmia, pneumonia, ACS, thromboembolic event etc. patient's initial evaluation included imaging of the chest x-ray, serial troponins, serial EKGs, other supportive lab test including a D-dimer. Her D-dimer is below the cutoff making thromboembolic disease unlikely. Serial troponins were also reassuring and negative for delta. Serial EKGs revealed no dynamic changes chest x-ray was unremarkable other than a solitary granuloma. No evidence of serious pathology at this time. Additional discussion was had regarding her anxiety as a potential component and also apparently her directed use of BuSpar as a as needed medication and and it is not usually effective in that manner. I advised continue the BuSpar, follow-up with her primary care clinic regarding discussion of medication use and perhaps the change in her medication dosing Lab Data I reviewed the patient's lab results. 04/26/24 12:14 04/26/24 12:14 Radiology Impressions Chest X-Ray 04/26/24 12:22 IMPRESSION: 1. No acute findings. 2. Probable 4 mm calcified granuloma in the right upper lobe. Laboratory Results WBC 6.59 10^3/uL (3.29-11.43) 04/26/24 12:14 RBC 5.00 10^6/uL (3.85-5.65) 04/26/24 12:14 Hgb 15.40 g/dL (11.27-16.99) 04/26/24 12:14 Hct 46.4 % (36-47) 04/26/24 12:14 MCV 92.8 fl (85-98) 04/26/24 12:14 MCH 30.8 pg (27-33) 04/26/24 12:14 MCHC 33.2 g/dL (30-55) 04/26/24 12:14 RDW 13.0 % (12.1-15.1) 04/26/24 12:14 Plt Count 343 10^3/cmm (157-399) 04/26/24 12:14 MPV 8.5 fL (7.4-10.4) 04/26/24 12:14 Neut % (Auto) 55.3 % 04/26/24 12:14 Lymph % (Auto) 37.5 % 04/26/24 12:14 [place] % (Auto) 5.8 % 04/26/24 12:14 Eos % (Auto) 0.9 % 04/26/24 12:14 Baso % (Auto) 0.3 % 04/26/24 12:14 Neut # (Auto) 3.65 10^3/uL (1.8-7.7) 04/26/24 12:14 Lymph # (Auto) 2.5 10^3/uL (0.8-4.8) 04/26/24 12:14 [place] # (Auto) 0.4 10^3/uL (0.2-0.9) 04/26/24 12:14 Eos # (Auto) 0.1 10^3/uL (0.0-0.8) 04/26/24 12:14 Baso # (Auto) 0.0 10^3/uL (0.0-0.1) 04/26/24 12:14 Nucleated RBC % (auto) 0 % 04/26/24 12:14 Nucleated RBCs # 0.0 /100WBC 04/26/24 12:14 D-Dimer 0.55 ug/mLFEU (0-0.59) 04/26/24 12:14 Sodium 139 mmol/L (136-145) 04/26/24 12:14 Potassium 3.9 mmol/L (3.5-5.1) 04/26/24 12:14 Chloride 105 mmol/L (98-107) 04/26/24 12:14 Carbon Dioxide 21 mmol/L (22-29) L 04/26/24 12:14 Anion Gap 16.9 (5-19) 04/26/24 12:14 BUN 11 mg/dL (6-20) 04/26/24 12:14 Creatinine 0.7 mg/dL (0.5-0.9) 04/26/24 12:14 GFR Calculation 98.9 mL/min (90-130) 04/26/24 12:14 Glucose 83 mg/dL (65-115) 04/26/24 12:14 Calculated Osmolality 287 mOsm/kg (285-295) 04/26/24 12:14 Calcium 8.8 mg/dL (8.5-10.5) 04/26/24 12:14 Total Bilirubin 0.2 mg/dL (0.15-1.2) 04/26/24 12:14 AST 13 U/L (0-32) 04/26/24 12:14 ALT 9 U/L (0-33) 04/26/24 12:14 Alkaline Phosphatase 84 U/L (35-105) 04/26/24 12:14 Troponin T Baseline < 6 ng/L (0-10) 04/26/24 12:14 Troponin T 120 Minute 6.00 ng/L (0-10) 04/26/24 13:44 Delta Troponin T 0.08534 ABS# (0-10) 04/26/24 13:44 Total Protein 7.1 g/dL (6.6-8.7) 04/26/24 12:14 Albumin 4.2 g/dL (3.5-5.2) 04/26/24 12:14 Globulin 2.9 g/dL (1.3-4.6) 04/26/24 12:14 All radiology interpretation(s) finalized by discharge EKG Data EKG 1: I personally reviewed and interpreted this EKG as follows: Interpretation: Contemporaneous review of resting EKG reveals a ventricular rate of 77 bpm. Normal intervals, normal axis. No acute ST-T wave changes. EKG 2: I personally reviewed and interpreted this EKG as follows: Interpretation: Second EKG revealed normal sinus rhythm with a ventricular rate of 73 bpm. Normal TX interval, QRS duration, corrected QT interval normal axis. No dynamic changes from tracing earlier this visit no acute changes. Discharge Plan Discharge Patient Disposition: Home Clinical Impression: Chest pain Qualifiers: Chest pain type: unspecified Qualified Code(s): R07.9 - Chest pain, unspecified Condition: Stable Prescriptions: No Action prenat.vits,denilson,[id number] Tablet 1 tab PO DAILY buspirone 5 mg tablet 5 mg PO BID norelgestromin-ethin.estradiol [Xulane] 150-35 mcg/24 hr patch weekly 1 patch transdermal Q7D Discharge Orders: Discharge ED (Routine); Ordered 04/26/24 Ordered By: Abbe Ervin Referrals: Elmer Sauer MD [Primary Care Provider] - Discharge Diet: Advance as tolerated Discharge Activity: Resume usual activity Patient Instructions: Opioid Safety, Pain Management Activity Restrictions/Additional Instructions: As we discussed while you are in the emergency department your test did not reveal any evidence that you might of had a blood clot, pneumonia, heart attack or other serious heart conditions at this time. Furthermore we discussed the fact that your BuSpar or buspirone should be taken on a regular basis as it is more effective in that manner. You should discuss this with your regular primary care clinic. You are welcome to return to the emergency department at anytime for any worsening or concerning symptoms. Print Language: Swiss Coding Level of Care Code ED [employer] for Tommy Slade
[2024-04-26 12:30] LABS: Basophils % 0.3 %; Eosinophils # 0.1 10^3/uL (0.0-0.8); Eosinophils % 0.9 %; Hematocrit 46.4 % (36-47); Lymphocytes # 2.5 10^3/uL (0.8-4.8); Lymphocytes % 37.5 %; Mean Corpuscular HGB Conc 33.2 g/dL (30-55); Mean Corpuscular Hemoglobin 30.8 pg (27-33); Mean Corpuscular Volume 92.8 fl (85-98); Mean Platelet Volume 8.5 fL (7.4-10.4); Monocytes # 0.4 10^3/uL (0.2-0.9); Monocytes % 5.8 %; Neutrophils # 3.65 10^3/uL (1.8-7.7); Neutrophils % 55.3 %; Nucleated Red Blood Cells % 0 %; Platelet Count 343 10^3/cmm (157-399); White Blood Count 6.59 10^3/uL (3.29-11.43)
[2024-04-26 12:40] LABS: D Dimer 0.55 ug/mLFEU (0-0.59)
[2024-04-26 12:41] VITALS: BP 122/69; PULSE 76; O2SAT 96
[2024-04-26 12:48] LABS: Alanine Aminotransferase 9 U/L (0-33); Albumin Level 4.2 g/dL (3.5-5.2); Alkaline Phosphatase 84 U/L (35-105); Anion Gap 16.9 (5-19); Aspartate Amino Transferase 13 U/L (0-32); Blood Urea Nitrogen 11 mg/dL (6-20); Calcium 8.8 mg/dL (8.5-10.5); Carbon Dioxide 21 mmol/L (22-29); Chloride 105 mmol/L (98-107); Creatinine Clr Calc Pharmacy 125.9745; Globulin 2.9 g/dL (1.3-4.6); Glomerular Filtration Rate 98.9 mL/min (90-130); Glucose 83 mg/dL (65-115); Osmolality Calculated 287 mOsm/kg (285-295); Potassium 3.9 mmol/L (3.5-5.1); Sodium 139 mmol/L (136-145); Total Bilirubin 0.2 mg/dL (0.15-1.2); Total Protein 7.1 g/dL (6.6-8.7); Troponin(5th) Baseline < 6 ng/L (0-10)
[2024-04-26 13:11] VITALS: PULSE 78; O2SAT 96
[2024-04-26 13:30] VITALS: BP 117/68; PULSE 74; O2SAT 97
[2024-04-26 14:00] VITALS: BP 114/76; PULSE 80; O2SAT 97
[2024-04-26 14:07] LABS: Troponin 5 2HR Delta 0.00001 ABS# (0-10)
--- NOTE | 2024-04-26 14:20 | ECG_ITS ---
[facility]: 2024-[facility]26 Pat Name: Racheal Morton Department: Room: Gender: Female Applications Tester: : 1995 Requested By: Abbe Ervin Order Number: [id number] Beverly MD: Wes Garcia M.D. Measurements Intervals [place] Rate: 73 P: 43 WI: 145 QRS: 55 QRSD: 89 T: 42 QT: 380 QTc: 420 Interpretive Statements SINUS RHYTHM Compared to ECG 04/26/2024 12:04:07 Sinus arrhythmia no longer present Electronically Signed On 04-26-2024 22:13:47 CDT by Wes Garcia M.D. [email or web address]
[2024-04-26 15:06] VITALS: BP 114/72; PULSE 79; O2SAT 99
== END 2024-04-26 15:06 | disposition home or self-care (01) ==
PROVIDERS: Emergency Provider Emergency Medicine; PCP Family Medicine
DX: R07.9 Chest pain, unspecified (principal)
CPT/HCPCS: 71045; 80053; 84484; 85025; 85378; 93005; 99285

== ENCOUNTER → 2024-12-29 11:05 | Outpatient (BNVA) | payer OTHER, SELFPAY | PROVIDERS: PCP Family Medicine; Visit Provider Obstetrics & Gynecology | DX: Z30.017 Encounter for initial prescription of implantable subdermal contraceptive (principal) | CPT/HCPCS: 81025 ==

== ENCOUNTER → 2025-01-19 16:30 | Outpatient (BNVA) | payer OTHER, SELFPAY | PROVIDERS: PCP Family Medicine; Visit Provider Obstetrics & Gynecology | DX: Z30.8 Encounter for other contraceptive management (principal) | CPT/HCPCS: 81025 ==